=== PATIENT | male | born 1995 | race Caucasian/White ===

== ENCOUNTER 2017-05-22 16:42 | Emergency (ER) | payer BC, OTHER ==
[~2017-05-22] VITALS: Ht 185.4 cm; Wt 73.8 kg
[2017-05-22 16:44] VITALS: TEMP 36.6; Ht 185.4 cm; Wt 73.8 kg
--- NOTE | 2017-05-22 18:02 | EMERGENCY ROOM VISIT NOTE ---
History Report prepared by Naomi: Candy De Jesus Under the Supervision of: Merlin HansonO. First contact with patient: 17:48 Chief Complaint: VOMITING Stated Complaint: NO APPETITE, VOMITING, NAUSEA History of Present Illness The patient is a 22 year old male who presents to the Emergency Room with complaints of vomiting beginning 3 days ago. He states that he has a burning pain in his abdomen. The patient states that he has not been eating because every time that he does, he gets nauseous. The patient reports that he has still been trying to sip water to stay hydrated. He denies fevers, chest pain, shortness of breath, diarrhea, black stool, and bloody stool. The patient reports drinking alcohol over the weekend, but not more than he usually does. He reports that he usually drinks two nights per week. The patient states that he is around peers who are also sick. He denies a history of pancreatitis and gall stones. Source of History: patient Onset: 3 days ago Position: other (global) Quality: other (vomiting ) Associated Symptoms: + nausea, + abdominal pain, No fevers, No chest pain, No diarrhea Review of Systems See HPI for pertinent positives & negatives. A total of 10 systems reviewed and were otherwise negative. Past Medical & Surgical Medical Problems: (1) Corneal abrasion (2) Laceration (3) No Known Active Medical Problems Family History No pertinent family history stated. Social History Smoking Status: Never Smoker Marital Status: single Housing Status: lives with roommate Occupation Status: [employer] student Current/Historical Medications Scheduled Bismuth Subsalicylate (Pepto Bismol Chew Tab), 2 TAB PO PRN Pantoprazole (Protonix), 40 MG PO DAILY Ranitidine Hcl (Zantac), 150 MG PO BID Allergies Coded Allergies: No Known Allergies (Unverified , 08/30/15) Physical Exam Vital Signs Date Time Temp Pulse Resp B/P (MAP) Pulse Ox O2 Delivery O2 Flow Rate FiO2 05/22/17 21:07 55 18 109/62 100 05/22/17 20:42 55 18 109/62 100 Room Air 05/22/17 18:27 54 18 105/56 100 Room Air 05/22/17 16:44 36.6 63 16 114/68 100 Room Air Physical Exam GENERAL: Patient is awake, alert, and in no acute distress. Patient is resting comfortably and is mildly anxious and uncomfortable appearing. EYES: The conjunctivae are clear. The pupils are round and reactive. EARS, NOSE, MOUTH AND THROAT: The nose is without any evidence of any deformity. Mucous membranes are moist tongue is midline NECK: The neck is nontender and supple. RESPIRATORY: Normal respiratory effort is noted there is no evidence of wheezing rhonchi or rales CARDIOVASCULAR: Regular rate and rhythm noted there no murmurs rubs or gallops normal S1 normal S2 GASTROINTESTINAL: The abdomen is soft with epigastric tenderness to palpation. Bowel sounds are present in all quadrants. Abdomen is nontender. No guarding or rigidity. No tenderness to right lower quadrant. BACK: No midline tenderness or or step-off noted range of motion in flexion extension as well as rotation no signs of muscle spasm noted MUSCULOSKELETAL/EXTREMITIES: There is no evidence of gross deformity full range of motion is noted in the hips and shoulders SKIN: There is no obvious evidence of any rash. There are no petechiae, pallor or cyanosis noted. NEUROLOGIC: Patient is awake alert and oriented x3 Medical Decision & Procedures ER Provider Diagnostic Interpretation: Radiology results as stated below per my review and radiologist interpretation: BILIARY ULTRASOUND CLINICAL HISTORY: Abdominal pain, anorexia, vomiting, nausea. COMPARISON STUDY: No previous studies for comparison. FINDINGS: The pancreas appears sonographically normal. The liver appears sonographically normal. The gallbladder appears sonographically normal. There is no ductal dilatation. The common bile duct measures 4 mm. There is no right-sided hydronephrosis. IMPRESSION: Normal biliary ultrasound. Electronically signed by: Urbano Stallings M.D. 05/22/2017 7:21 PM Dictated Date/Time: 05/22/2017 7:20 PM ABDOMEN 2VIEW W/PA CHEST RTN CLINICAL HISTORY: Abdominal pain COMPARISON STUDY: No previous studies for comparison. FINDINGS: The erect chest reveals no evidence of free air. There is no evidence of focal pulmonary consolidation.] Erect and supine views of the abdomen reveal no abnormally dilated loops of large or small bowel. There are no transition zone to indicate bowel obstruction. IMPRESSION: No evidence of bowel obstruction. No evidence of free air. Electronically signed by: Urbano Stallings M.D. 05/22/2017 7:46 PM Dictated Date/Time: 05/22/2017 7:45 PM Laboratory Results 05/22/17 18:00 Red Blood Count 5.11, Mean Corpuscular Volume 88.5, Mean Corpuscular Hemoglobin 31.1, Mean Corpuscular Hemoglobin Concent 35.2, Mean Platelet Volume 9.8, Neutrophils (%) (Auto) 59.3, Lymphocytes (%) (Auto) 33.8, Monocytes (%) (Auto) 5.7, Eosinophils (%) (Auto) 0.7, Basophils (%) (Auto) 0.1, Neutrophils # (Auto) 4.99, Lymphocytes # (Auto) 2.85, Monocytes # (Auto) 0.48, Eosinophils # (Auto) 0.06, Basophils # (Auto) 0.01 05/22/17 18:00 Test 05/22/17 18:00 White Blood Count 8.42 K/uL (4.8-10.8) Red Blood Count 5.11 M/uL (4.7-6.1) Hemoglobin 15.9 g/dL (14.0-18.0) Hematocrit 45.2 % (42-52) Mean Corpuscular Volume 88.5 fL (80-100) Mean Corpuscular Hemoglobin 31.1 pg (25-34) Mean Corpuscular Hemoglobin Concent 35.2 g/dl (32-36) Platelet Count 176 K/uL (130-400) Mean Platelet Volume 9.8 fL (7.4-10.4) Neutrophils (%) (Auto) 59.3 % Lymphocytes (%) (Auto) 33.8 % Monocytes (%) (Auto) 5.7 % Eosinophils (%) (Auto) 0.7 % Basophils (%) (Auto) 0.1 % Neutrophils # (Auto) 4.99 K/uL (1.4-6.5) Lymphocytes # (Auto) 2.85 K/uL (1.2-3.4) Monocytes # (Auto) 0.48 K/uL (0.11-0.59) Eosinophils # (Auto) 0.06 K/uL (0-0.5) Basophils # (Auto) 0.01 K/uL (0-0.2) RDW Standard Deviation 39.7 fL (36.4-46.3) RDW Coefficient of Variation 12.3 % (11.5-14.5) Immature Granulocyte % (Auto) 0.4 % Immature Granulocyte # (Auto) 0.03 K/uL (0.00-0.02) Anion Gap 4.0 mmol/L (3-11) Est Creatinine Clear Calc Drug Dose 123.0 ml/min Estimated GFR () 125.0 Estimated GFR (Non- 107.9 BUN/Creatinine Ratio 7.7 (10-20) Calcium Level 9.1 mg/dl (8.5-10.1) Total Bilirubin 0.6 mg/dl (0.2-1) Direct Bilirubin 0.1 mg/dl (0-0.2) Aspartate Amino Transf (AST/SGOT) 12 U/L (15-37) Alanine Aminotransferase (ALT/SGPT) 18 U/L (12-78) Alkaline Phosphatase 97 U/L (45-117) Total Protein 7.7 gm/dl (6.4-8.2) Albumin 4.4 gm/dl (3.4-5.0) Amylase Level 36 U/L (25-115) Lipase 84 U/L (73-393) Laboratory results per my review. Medications Administered Medications (Trade) Dose Ordered Sig/Buddy Route Start Time Stop Time Status Last Admin Dose Admin Sodium Chloride 1,000 ml @ 999 mls/hr Q1H1M STAT IV 05/22/17 18:04 05/22/17 19:04 DC 05/22/17 18:24 999 MLS/HR Ondansetron HCl (Zofran Inj) 4 mg NOW STAT IV 05/22/17 18:04 05/22/17 18:06 DC 05/22/17 18:26 4 MG Famotidine (Pepcid 20mg/100 ml) 20 mg ONE STAT IV 05/22/17 18:04 05/22/17 18:06 DC 05/22/17 18:25 20 MG Pantoprazole Sodium 40 mg/ Syringe 10 ml @ 5 mls/min NOW ONCE IV 05/22/17 18:15 05/22/17 18:16 DC 05/22/17 18:26 5 MLS/MIN Al Hydroxide/Mg Hydroxide (Maalox Susp) 30 ml NOW STAT PO 05/22/17 19:41 05/22/17 19:42 DC 05/22/17 19:48 30 ML ED Course 1755: The patient was evaluated in room C10. A complete history and physical examination were performed. 1804: Ordered Famotidine 20 mg IV, Zofran Inj 4 mg IV, Sodium Chloride 1,000 ml @ 999 mls/hr IV. 1814: Ordered Pantoprazole Sodium 40 mg/Syringe 10 ml @ 5 mls/min IV. 1940: Ordered Maalox Susp 30 ml PO. 2020: I updated the patient. 2030: Upon reevaluation, the patient is resting. I discussed the results and treatment plan with him. He verbalized agreement of the treatment plan. He was discharged home. Medical Decision Differential diagnosis: Etiologies such as gastroenteritis, food borne illness, infections, appendicitis , diverticulitis, inflammatory bowel disease, obstruction, GI bleed, biliary pathology, as well as others were entertained. Nursing notes reviewed. The patient is a 22-year-old male who presented to emergency department for upper abdominal pain. The patient did not have an acute surgical abdomen by physical exam. His white blood cell count was normal. The patient states that food affected this pain and I do feel this time it likely represents a GI source for his pain which is likely either gastric or duodenal in nature. The patient was treated with IV fluids and proton pump inhibitor in the emergency department. I discussed the patient's laboratory radiographic studies with him. At this time he has contacted his mother and it sounds white she is going to set him up with a GI evaluation at home this weekend. The patient was encouraged to follow-up with the [facility] this week for reevaluation. He was also encouraged to continue all medications as prescribed. He was also encouraged to return to the emergency department immediately if symptoms change worsen or the need arises. Medication Reconcilliation Current Medication List: was personally reviewed by me Blood Pressure Screening Patient's blood pressure: Normal blood pressure Impression Primary Impression: Gastritis Additional Impression: Epigastric pain Scribe Attestation The scribe's documentation has been prepared under my direction and personally reviewed by me in its entirety. I confirm that the note above accurately reflects all work, treatment, procedures, and medical decision making performed by me. Departure Information Dispostion Home / Self-Care Prescriptions Ranitidine Hcl (ZANTAC) 150 Mg Tab 150 MG PO BID, #60 TAB Prov: Isreal Marc, DO 05/22/17 Pantoprazole (PROTONIX) 40 Mg Tab 40 MG PO DAILY, #30 TAB Prov: Isreal Marc, DO 05/22/17 Referrals No Doctor, Assigned (PCP) Forms HOME CARE DOCUMENTATION FORM, IMPORTANT VISIT INFORMATION Patient Instructions ED Abdominal Pain Unkn Cause Male, Gastritis, My [facility] Additional Instructions Continue all medications as prescribed. Continue using Maalox or Mylanta as directed for symptomatically. Avoid any alcoholic beverages. Follow-up with [facility] for reevaluation. Follow-up with the jailer/training officer as soon as possible. Return to the emergency department immediately symptoms change worsen or the need arises. Problem Qualifiers Primary Impression: Gastritis Gastritis type: unspecified gastritis Chronicity: acute Gastritis bleeding : presence of bleeding unspecified Qualified Codes: K29.00 - Acute gastritis without bleeding
[2017-05-22] MEDS ORDERED: FAMOTIDINE 20MG/102 ML D5W IV STA (18:04)
[2017-05-22] MEDS ORDERED: SODIUM CHLORIDE 0.9% 1000ML 1,000 ML IV STA (18:04)
[2017-05-22] MEDS ORDERED: ONDANSETRON INJ 2 MG/ML 2 ML VIAL IV STA (18:04)
[2017-05-22 18:14] LABS: BASO % 0.1 %; BASO ABS # 0.01 K/uL (0-0.2); COMPLETE YES; EOS % 0.7 %; HEMATOCRIT 45.2 % (42-52); IG% 0.4 %; LYMPH % 33.8 %; LYMPH ABS # 2.85 K/uL (1.2-3.4); MEAN CELL VOLUME 88.5 fL (80-100); MEAN CORPUSCULAR HEMOGLOBIN 31.1 pg (25-34); MEAN CORPUSCULAR HGB CONC 35.2 g/dl (32-36); MEAN PLATELET VOLUME 9.8 fL (7.4-10.4); MONO % 5.7 %; NEUT % 59.3 %; PLATELET COUNT 176 K/uL (130-400); RED BLOOD COUNT 5.11 M/uL (4.7-6.1); WHITE BLOOD COUNT 8.42 K/uL (4.8-10.8)
[2017-05-22] MEDS ORDERED: PANTOprazole INJ 40 MG in SYRINGE 0 ML IV ONE (18:15)
[2017-05-22 18:36] LABS: BUN/CREATININE RATIO 7.7 (10-20); CALCIUM 9.1 mg/dl (8.5-10.1); POTASSIUM 3.8 mmol/L (3.5-5.1)
[2017-05-22] MEDS ORDERED: BISM262T3 PO (18:44)
--- NOTE | 2017-05-22 19:22 | DIAGNOSTIC IMAGING REPORT ---
BILIARY ULTRASOUND CLINICAL HISTORY: Abdominal pain, anorexia, vomiting, nausea. COMPARISON STUDY: No previous studies for comparison. FINDINGS: The pancreas appears sonographically normal. The liver appears sonographically normal. The gallbladder appears sonographically normal. There is no ductal dilatation. The common bile duct measures 4 mm. There is no right-sided hydronephrosis. IMPRESSION: Normal biliary ultrasound. Electronically signed by: Urbano Stallings M.D. 05/22/2017 7:21 PM Dictated Date/Time: 05/22/2017 7:20 PM
[2017-05-22] MEDS ORDERED: ALUMINUM/MAGNESIUM SUSP 30 ML UDC PO STA (19:41)
--- NOTE | 2017-05-22 19:47 | DIAGNOSTIC IMAGING REPORT ---
ABDOMEN 2VIEW W/PA CHEST RTN CLINICAL HISTORY: Abdominal pain COMPARISON STUDY: No previous studies for comparison. FINDINGS: The erect chest reveals no evidence of free air. There is no evidence of focal pulmonary consolidation.] Erect and supine views of the abdomen reveal no abnormally dilated loops of large or small bowel. There are no transition zone to indicate bowel obstruction. IMPRESSION: No evidence of bowel obstruction. No evidence of free air. Electronically signed by: Urbano Stallings M.D. 05/22/2017 7:46 PM Dictated Date/Time: 05/22/2017 7:45 PM
[2017-05-22] MEDS ORDERED: RANI150T3 PO (20:19)
[2017-05-22] MEDS ORDERED: PANT1TAB48 PO (20:19)
[2017-05-22 21:07] VITALS: BP 109/62; PULSE 55; O2SAT 100
== END 2017-05-22 21:08 | disposition home or self-care (01) ==
LOC: C.EDB 16:43 → C.EDC 21:08
DX: K29.00 Acute gastritis without bleeding (principal); R10.13 Epigastric pain